=== PATIENT | male | born 1975 | race Caucasian/White ===

== ENCOUNTER 2023-02-21 12:22 | Emergency (ER) | payer BC ==
[2023-02-21 12:29] VITALS: TEMP 98.1
[2023-02-21] MEDS ORDERED: ONDANSETRON ODT 4 MG TAB PO STA (13:03)
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
--- NOTE | 2023-02-21 14:24 | XR ---
EXAMINATION TYPE: XR shoulder complete RT DATE OF EXAM: 02/21/2023 COMPARISON: NONE HISTORY: Pain TECHNIQUE: Three views are submitted. FINDINGS: The osseous structures are intact. There is no acute fracture or dislocation. Mild AC joint arthropa thy.. IMPRESSION: 1. No acute process. Mild AC joint arthropathy.
[2023-02-21 14:55] VITALS: BP 133/85; PULSE 70; RESP 18
== END 2023-02-21 15:04 | disposition home or self-care (01) ==
LOC: EC 12:22
DX: M25.511 Pain in right shoulder (principal); M54.2 Cervicalgia; Z88.8 Allergy status to other drugs, medicaments and biological substances; Y04.8XXA Assault by other bodily force, initial encounter
CPT/HCPCS: 70450; 71046; 72125; 99284